=== PATIENT | male | born 1940 | race Caucasian/White ===

== ENCOUNTER 2020-01-18 16:09 | Inpatient (IN) | payer BC, MEDICARE ==
[~2020-01-18] VITALS: Ht 170.2 cm; Wt 59.5 kg
--- NOTE | 2020-01-18 16:40 | NUR ---
PT SITTING RECLINED IN BED WITH BLANKET ON. HOB TO LEVEL OF COMFORT. IV START, LABS DRAWN. AWAITING CTA. DAUGHTER AT BEDSIDE. PT SLIGHTLY LABORED RESPIRATIONS, SATURATING WELL ON 3L NC. SIDE RAIL UP, CALL LIGHT IN REACH.
--- NOTE | 2020-01-18 16:50 | NUR ---
REPORT TO ALEX DELGADO.
[2020-01-18 17:13] LABS: BASOPHILS % (AUTO) 1 % (0-1); EOSINOPHILS % (AUTO) 0 % (1-7); LYMPHOCYTES % (AUTO) 6 % (22-44); MEAN CORPUSCULAR HEMOGLOBIN 29.7 pg (27.5-34.5); MEAN CORPUSCULAR HGB CONC 32.9 g/dL (33.2-36.2); MEAN PLATELET VOLUME 8.6 fL (7.4-10.4); MONOCYTES % (AUTO) 14 % (2-9); NEUTROPHILS % (AUTO) 79 % (42-75); PLATELET COUNT 235 x10^3/uL (130-400); RED BLOOD COUNT 4.74 x10^6/uL (4.38-5.82); RED CELL DISTRIBUTION WIDTH 15.3 % (9.4-14.8)
[2020-01-18 17:14] LABS: MD NO
--- NOTE | 2020-01-18 17:22 | NUR ---
PRIOR LABS HEMOLYZED. NEW PIV PLACED ROM WHICH SECON SET OF LABS OBTAINED-WALKED TO LAB PATIENT/FAMILY UPDATED ON ESTIMATED P OC VSS ON 3L NC (97%)
--- NOTE | 2020-01-18 17:26 | NUR ---
Infection treatment plan reviewed with provider (pna on cxr), provider to obtain cta then proceed with infectiopus labs/abx
[2020-01-18 17:45] LABS: ANION GAP 4 mmol/L (5-15); CHLORIDE 98 mmol/L (98-107); CREATININE 0.77 mg/dL (0.7-1.3)
[2020-01-18 17:53] LABS: TROPONIN I 0.164 ng/mL (0.000-0.045)
--- NOTE | 2020-01-18 17:57 | NUR ---
LAB CALLED TO REPORT CRITICAL TROPONIN OF 0.164 DR. METZGER MADE AWARE. AWAITING ORDERS
--- NOTE | 2020-01-18 18:00 | NUR ---
TO CT SCAN
[2020-01-18] MEDS ORDERED: OMNIPAQUE 350 MG/ML, 75ML BOTTLE ONE (18:29)
[2020-01-18] MEDS ORDERED: HEPARIN 5,000 UNITS/ML, 1ML ONE (18:47)
[2020-01-18] MEDS ORDERED: HEPARIN 25,000 UNITS/250ML PMX 250 ML ONE (18:47)
[2020-01-18] MEDS: HEPARIN 25,000 UNITS/250ML PMX 250 ML IV PRN (18:53)
--- NOTE | 2020-01-18 18:54 | NUR ---
AFTER CLARIFICATION THAT ANTI-XA LA RUNNING-HEAPRIN DRIP AND BOLUS STARTED
[2020-01-18] MEDS ORDERED: HEPARIN 5,000 UNITS/ML, 1ML IV ONE (19:00)
[2020-01-18] MEDS: SODIUM CHLORIDE 0.9% 1,000 ML IV SCH (19:26)
[2020-01-18] MEDS ORDERED: ACETAMINOPHEN 325 MG TABLET PO PRN (19:30)
[2020-01-18] MEDS ORDERED: BISACODYL 10 MG SUPP PR PRN (19:30)
[2020-01-18] MEDS ORDERED: ONDANSETRON ODT 4 MG PO PRN (19:30)
[2020-01-18] MEDS ORDERED: POLYETHYLENE GLYCOL 17 GM PACKET PO PRN (19:30)
--- NOTE | 2020-01-18 19:57 | NUR ---
ULTRASOUND AT BEDSIDE PROVIDED WITH DINNER TRAY NOW ANXIOUS "I CAN'T STAY"-PROVIDER MADE AWARE TO ADMIN ATIVAN AFTER MOVE TO HOSPITAL BED
[2020-01-18] MEDS ORDERED: LORazepam 2 MG/ML, 1ML IVPush PRN (20:00)
[2020-01-18] MEDS ORDERED: LORazepam 2 MG/ML, 1ML ONE (20:34)
--- NOTE | 2020-01-18 20:42 | NUR ---
MEDICATED PER EMAR WITH ATIVAN FOR ANXIETY
--- NOTE | 2020-01-18 20:50 | NUR ---
ATTEMPTED TO CALL REPORT- RN OTHERWISE OCCUPIED
[2020-01-18 21:46] VITALS: BP 158/102
[2020-01-18 21:57] VITALS: BP 169/105
[2020-01-19 00:25] VITALS: BP 169/102
[2020-01-19 00:25] LABS: TROPONIN I 0.191 ng/mL (0.000-0.045)
[2020-01-19] MEDS: HEPARIN 5,000 UNITS/ML, 1ML IV PRN ×3 (02:01→16:59)
[2020-01-19 05:55] LABS: BASOPHILS % (AUTO) 0 % (0-1); EOSINOPHILS % (AUTO) 0 % (1-7); LYMPHOCYTES % (AUTO) 7 % (22-44); MEAN CORPUSCULAR HEMOGLOBIN 29.9 pg (27.5-34.5); MEAN CORPUSCULAR HGB CONC 33.2 g/dL (33.2-36.2); MEAN PLATELET VOLUME 7.7 fL (7.4-10.4); MONOCYTES % (AUTO) 15 % (2-9); NEUTROPHILS % (AUTO) 77 % (42-75); PLATELET COUNT 214 x10^3/uL (130-400); RED BLOOD COUNT 4.43 x10^6/uL (4.38-5.82); RED CELL DISTRIBUTION WIDTH 14.9 % (9.4-14.8)
[2020-01-19 05:56] LABS: CALCIUM 8.8 mg/dL (8.5-10.1); CREATININE 0.61 mg/dL (0.7-1.3)
[2020-01-19 05:59] LABS: TROPONIN I 0.166 ng/mL (0.000-0.045)
[2020-01-19 06:18] LABS: MD NO
[2020-01-19 06:19] LABS: ANION GAP 7 mmol/L (5-15); CHLORIDE 101 mmol/L (98-107)
[2020-01-19 07:35] VITALS: BP 154/88
[2020-01-19 08:58] VITALS: BP 167/98
[2020-01-19] MEDS: SENNA/DOCUSATE TABLET PO SCH (09:00)
[2020-01-19] MEDS: SODIUM CHLORIDE 0.9% 1,000 ML IV SCH ×2 (09:24→23:27)
[2020-01-19] MEDS: LISINOPRIL 10 MG TABLET PO SCH (09:30)
[2020-01-19] MEDS: METOPROLOL TARTRATE 25 MG TAB PO SCH ×2 (09:30→16:59)
[2020-01-19] MEDS ORDERED: ENALAPRILAT 1.25 MG/ML, 1ML IV PRN (09:30)
[2020-01-19] MEDS ORDERED: ENALAPRILAT 1.25 MG/ML, 2ML IV PRN (09:30)
[2020-01-19 12:10] VITALS: BP 159/89
[2020-01-19] MEDS ORDERED: AMLO-150 PO (15:27)
[2020-01-19] MEDS ORDERED: TIOT4MIS3 INH (16:21)
[2020-01-19 16:38] VITALS: BP 153/87
[2020-01-19] MEDS: HEPARIN 25,000 UNITS/250ML PMX 250 ML IV PRN (16:58)
[2020-01-19 21:45] VITALS: BP 144/88
[2020-01-20] VITALS (8 sets, daily range): BP systolic 133–153; BP diastolic 76–88
[2020-01-20] MEDS: HEPARIN 5,000 UNITS/ML, 1ML IV PRN (00:15)
[2020-01-20] MEDS: METOPROLOL TARTRATE 25 MG TAB PO SCH ×2 (00:15→09:31)
[2020-01-20] MEDS ORDERED: SUCCINYLCHOLINE 20 MG/ML, 10ML ONE (08:00)
[2020-01-20] MEDS ORDERED: PROPOFOL 10 MG/ML, 100ML IV ONE ×2 (08:00)
[2020-01-20] MEDS: SENNA/DOCUSATE TABLET PO SCH (09:30)
[2020-01-20] MEDS: LISINOPRIL 10 MG TABLET PO SCH (09:31)
[2020-01-20] MEDS: HEPARIN 25,000 UNITS/250ML PMX 250 ML IV PRN (13:10)
[2020-01-20] MEDS ORDERED: ALTEPLASE 10 MG in SODIUM CHLORIDE 0.9% 240 ML IV ONE (13:30)
[2020-01-20] MEDS ORDERED: MIDAZOLAM HCL 50 MG in SODIUM CHLORIDE 0.9% 40 ML IV PRN (17:30)
[2020-01-20] MEDS: LORazepam 2 MG/ML, 1ML IVPush PRN (17:41)
[2020-01-20] MEDS: FUROSEMIDE 40 MG/4 ML IV SCH (17:42)
[2020-01-20] MEDS ORDERED: FENTANYL PF 1,000 MCG in SODIUM CHLORIDE 0.9% 80 ML IV PRN (18:00)
[2020-01-20] MEDS ORDERED: AZITHROMYCIN 500 MG in SODIUM CHLORIDE 0.9% 250 ML IV SCH (18:00)
[2020-01-20] MEDS ORDERED: GLUCAGON 1 MG IM PRN (18:30)
[2020-01-20] MEDS ORDERED: DEXTROSE 4 GM TAB.CHEW PO PRN (18:30)
[2020-01-20] MEDS ORDERED: PHARMACY MAY ADJ FOR RENAL FX MC SCH (18:30)
[2020-01-20] MEDS ORDERED: NOREPINEPHRINE 8 MG in SODIUM CHLORIDE 0.9% 242 ML IV PRN (18:30)
[2020-01-20] MEDS: ALBUTEROL/IPRATROPIUM 2.5MG/0.5MG, 3 ML HHN SCH (18:30)
[2020-01-20] MEDS ORDERED: DEXTROSE 50%, 50ML SYRINGE IVPush PRN (18:30)
[2020-01-20 18:57] LABS: MICROSCOPIC INDICATED
[2020-01-20] MEDS ORDERED: CEFTRIAXONE PMX 2GM/50ML 50 ML IVPB SCH (20:00)
[2020-01-20] MEDS: SODIUM CHLORIDE FLUSH 10ML SYR IVF SCH (20:07)
[2020-01-20] MEDS ORDERED: METOPROLOL TARTRATE 50 MG TAB PO SCH (21:00)
[2020-01-21] MEDS: ALBUTEROL/IPRATROPIUM 2.5MG/0.5MG, 3 ML HHN SCH ×4 (00:30→20:07)
[2020-01-21 03:38] LABS: ALANINE AMINOTRANSFERASE 19 U/L (12-78); ALBUMIN 2.2 g/dL (3.4-5.0); ANION GAP 3 mmol/L (5-15); CALCIUM 8.2 mg/dL (8.5-10.1); CHLORIDE 102 mmol/L (98-107); CREATININE 0.74 mg/dL (0.7-1.3)
[2020-01-21 03:41] LABS: ALKALINE PHOSPHATASE 75 U/L (45-117); BILIRUBIN,TOTAL 0.5 mg/dL (0.2-1.0); CHOL/HDL RATIO 2.3; CHOLESTEROL, TOTAL 63 mg/dL (140-239); HDL CHOL % 43 % (26-37); HDL CHOLESTEROL (DIRECT) 27 mg/dL (40-60); LDL CHOLESTEROL,CALCULATED 24 mg/dL (54-169); LDL/HDL RATIO 0.9 (0.5-3.0); TRIGLYCERIDES 62 mg/dL (50-200); TROPONIN I 0.108 ng/mL (0.000-0.045); VLDL CHOLESTEROL 12 mg/dL (0-25)
[2020-01-21 03:49] LABS: BASOPHILS % (AUTO) 1 % (0-1); EOSINOPHILS % (AUTO) 1 % (1-7); LYMPHOCYTES % (AUTO) 8 % (22-44); MEAN CORPUSCULAR HGB CONC 33.2 g/dL (33.2-36.2); MEAN PLATELET VOLUME 7.7 fL (7.4-10.4); MONOCYTES % (AUTO) 11 % (2-9); NEUTROPHILS % (AUTO) 80 % (42-75); PLATELET COUNT 180 x10^3/uL (130-400); RED BLOOD COUNT 3.71 x10^6/uL (4.38-5.82); RED CELL DISTRIBUTION WIDTH 14.9 % (9.4-14.8)
[2020-01-21 03:51] LABS: MD NO
[2020-01-21 04:00] VITALS: BP 107/57
[2020-01-21] MEDS: HEPARIN 5,000 UNITS/ML, 1ML IV PRN (04:39)
[2020-01-21] MEDS: FUROSEMIDE 40 MG/4 ML IV SCH ×2 (08:29→17:29)
[2020-01-21] MEDS: SENNA/DOCUSATE TABLET PO SCH (08:29)
[2020-01-21] MEDS: SODIUM CHLORIDE FLUSH 10ML SYR IVF SCH ×2 (08:29→20:13)
[2020-01-21] MEDS: CARVEDILOL 3.125 MG TABLET PO SCH ×2 (09:10→17:30)
[2020-01-21] MEDS: LISINOPRIL 5 MG TABLET PO SCH (09:10)
[2020-01-21] MEDS: HEPARIN 25,000 UNITS/250ML PMX 250 ML IV PRN (10:53)
[2020-01-21] MEDS: LORazepam 2 MG/ML, 1ML IVPush PRN ×2 (11:02→17:29)
[2020-01-22] MEDS: ALBUTEROL/IPRATROPIUM 2.5MG/0.5MG, 3 ML HHN SCH ×4 (02:10→20:45)
[2020-01-22 04:34] LABS: BASOPHILS % (AUTO) 1 % (0-1); EOSINOPHILS % (AUTO) 1 % (1-7); LYMPHOCYTES % (AUTO) 10 % (22-44); MEAN CORPUSCULAR HEMOGLOBIN 29.5 pg (27.5-34.5); MEAN CORPUSCULAR HGB CONC 32.6 g/dL (33.2-36.2); MEAN PLATELET VOLUME 7.7 fL (7.4-10.4); MONOCYTES % (AUTO) 11 % (2-9); NEUTROPHILS % (AUTO) 77 % (42-75); PLATELET COUNT 210 x10^3/uL (130-400); RED CELL DISTRIBUTION WIDTH 14.8 % (9.4-14.8)
[2020-01-22 04:37] VITALS: BP 137/75
[2020-01-22] MEDS: HEPARIN 25,000 UNITS/250ML PMX 250 ML IV PRN (04:37)
[2020-01-22 04:38] LABS: MD NO
[2020-01-22] MEDS: CARVEDILOL 3.125 MG TABLET PO SCH (05:11)
[2020-01-22] MEDS ORDERED: MAGNESIUM SULFATE PMX 2GM/50ML 50 ML IV ONE (06:00)
[2020-01-22] MEDS: FUROSEMIDE 40 MG/4 ML IV SCH ×2 (07:33→17:03)
[2020-01-22] MEDS: QUETIAPINE 25MG TABLET PO SCH ×3 (08:29→21:51)
[2020-01-22] MEDS: LISINOPRIL 5 MG TABLET PO SCH (08:29)
[2020-01-22] MEDS: SODIUM CHLORIDE FLUSH 10ML SYR IVF SCH ×2 (08:30→21:00)
[2020-01-22] MEDS: SENNA/DOCUSATE TABLET PO SCH (08:30)
--- NOTE | 2020-01-22 10:42 | NUR ---
TF Recommendations as Needed: Osmolite 1.2 ON propofol 60 ml/hr goal OFF propofol 65 ml/hr goal
[2020-01-22] MEDS ORDERED: CARVEDILOL 6.25 MG TABLET PO SCH (18:00)
[2020-01-22] MEDS: CEFTRIAXONE PMX 1GM/50ML 50 ML IV SCH (18:17)
[2020-01-22] MEDS: CARVEDILOL 6.25 MG TABLET PO SCH (21:52)
[2020-01-23] MEDS: ALBUTEROL/IPRATROPIUM 2.5MG/0.5MG, 3 ML HHN SCH ×2 (02:25→06:48)
[2020-01-23] MEDS: HEPARIN 25,000 UNITS/250ML PMX 250 ML IV PRN (03:08)
[2020-01-23] MEDS ORDERED: LIDOCAINE-MPF 1%, 2ML ONE (03:49)
[2020-01-23 04:00] VITALS: BP 126/84
[2020-01-23 04:44] LABS: BASOPHILS % (AUTO) 0 % (0-1); EOSINOPHILS % (AUTO) 3 % (1-7); LYMPHOCYTES % (AUTO) 8 % (22-44); MEAN CORPUSCULAR HEMOGLOBIN 29.5 pg (27.5-34.5); MEAN CORPUSCULAR HGB CONC 32.9 g/dL (33.2-36.2); MEAN PLATELET VOLUME 7.8 fL (7.4-10.4); MONOCYTES % (AUTO) 11 % (2-9); NEUTROPHILS % (AUTO) 79 % (42-75); PLATELET COUNT 238 x10^3/uL (130-400); RED BLOOD COUNT 4.02 x10^6/uL (4.38-5.82); RED CELL DISTRIBUTION WIDTH 14.4 % (9.4-14.8)
[2020-01-23 04:48] LABS: MD NO
[2020-01-23 04:56] LABS: CALCIUM 8.7 mg/dL (8.5-10.1); CREATININE 0.75 mg/dL (0.7-1.3); TRIGLYCERIDES 71 mg/dL (50-200)
[2020-01-23 05:06] LABS: ANION GAP 6 mmol/L (5-15); CHLORIDE 95 mmol/L (98-107)
[2020-01-23] MEDS ORDERED: POTASSIUM CHLORIDE 10% 20 MEQ/15 ML UDC PO ONE (06:30)
[2020-01-23] MEDS: HEPARIN 5,000 UNITS/ML, 1ML IV PRN (07:06)
[2020-01-23] MEDS: FUROSEMIDE 40 MG/4 ML IV SCH (07:42)
[2020-01-23] MEDS: SENNA/DOCUSATE TABLET PO SCH (09:03)
[2020-01-23] MEDS: CARVEDILOL 6.25 MG TABLET PO SCH ×3 (09:03→21:08)
[2020-01-23] MEDS: LISINOPRIL 5 MG TABLET PO SCH (09:04)
[2020-01-23] MEDS: SODIUM CHLORIDE FLUSH 10ML SYR IVF SCH ×2 (09:06→21:00)
[2020-01-23] MEDS: APIXABAN 5 MG TABLET PO SCH ×2 (09:06→21:08)
[2020-01-23] MEDS ORDERED: SODIUM CHLORIDE 0.9%, 500ML IVBOLUS ONE ×2 (11:30→18:00)
[2020-01-23 12:32] LABS: CALCIUM 8.7 mg/dL (8.5-10.1); CREATININE 0.66 mg/dL (0.7-1.3)
[2020-01-23 12:45] LABS: ANION GAP 3 mmol/L (5-15); CHLORIDE 98 mmol/L (98-107)
[2020-01-23] MEDS: CEFTRIAXONE PMX 1GM/50ML 50 ML IV SCH (16:54)
[2020-01-23] MEDS: ALBUTEROL-IPRATROPIUM MDI INH INH SCH ×2 (16:54→21:00)
[2020-01-24] MEDS: ALBUTEROL-IPRATROPIUM MDI INH INH SCH ×4 (03:00→20:46)
[2020-01-24 05:00] VITALS: BP 142/79
[2020-01-24 07:53] LABS: BASOPHILS % (AUTO) 0 % (0-1); EOSINOPHILS % (AUTO) 3 % (1-7); LYMPHOCYTES % (AUTO) 6 % (22-44); MEAN CORPUSCULAR HEMOGLOBIN 29.6 pg (27.5-34.5); MEAN CORPUSCULAR HGB CONC 32.6 g/dL (33.2-36.2); MEAN PLATELET VOLUME 8.1 fL (7.4-10.4); MONOCYTES % (AUTO) 10 % (2-9); NEUTROPHILS % (AUTO) 81 % (42-75); PLATELET COUNT 228 x10^3/uL (130-400); RED BLOOD COUNT 3.92 x10^6/uL (4.38-5.82)
[2020-01-24 07:58] LABS: ANION GAP 1 mmol/L (5-15); CALCIUM 8.5 mg/dL (8.5-10.1); CHLORIDE 99 mmol/L (98-107); CREATININE 0.58 mg/dL (0.7-1.3)
[2020-01-24 08:02] LABS: MD NO
[2020-01-24] MEDS ORDERED: METHYLNALTREXONE 12 MG/0.6 ML SYR SQ SCH (09:00)
[2020-01-24] MEDS: SENNA/DOCUSATE TABLET PO SCH (09:30)
[2020-01-24] MEDS: LISINOPRIL 5 MG TABLET PO SCH (09:30)
[2020-01-24] MEDS: APIXABAN 5 MG TABLET PO SCH ×2 (09:31→20:39)
[2020-01-24] MEDS: CARVEDILOL 6.25 MG TABLET PO SCH ×3 (09:31→20:39)
[2020-01-24] MEDS: SODIUM CHLORIDE FLUSH 10ML SYR IVF SCH ×2 (09:31→20:39)
[2020-01-24] MEDS: FUROSEMIDE 40 MG/4 ML IV SCH (09:32)
[2020-01-24] MEDS ORDERED: METHYLNALTREXONE 12 MG/0.6 ML SYR SQ ONE (11:30)
[2020-01-24] MEDS: CEFTRIAXONE PMX 1GM/50ML 50 ML IV SCH (16:47)
[2020-01-24 20:38] VITALS: BP 153/92
[2020-01-25 01:52] VITALS: BP 107/75
[2020-01-25] MEDS: ALBUTEROL-IPRATROPIUM MDI INH INH SCH ×4 (03:27→18:49)
[2020-01-25 05:30] LABS: BASOPHILS % (AUTO) 1 % (0-1); EOSINOPHILS % (AUTO) 3 % (1-7); LYMPHOCYTES % (AUTO) 7 % (22-44); MEAN CORPUSCULAR HEMOGLOBIN 29.2 pg (27.5-34.5); MEAN CORPUSCULAR HGB CONC 32.4 g/dL (33.2-36.2); MEAN PLATELET VOLUME 7.9 fL (7.4-10.4); MONOCYTES % (AUTO) 9 % (2-9); NEUTROPHILS % (AUTO) 80 % (42-75); PLATELET COUNT 236 x10^3/uL (130-400); RED BLOOD COUNT 4.09 x10^6/uL (4.38-5.82); RED CELL DISTRIBUTION WIDTH 14.7 % (9.4-14.8)
[2020-01-25 05:36] LABS: MD NO
[2020-01-25 07:30] VITALS: BP 158/88
[2020-01-25] MEDS: FUROSEMIDE 40 MG/4 ML IV SCH (09:26)
[2020-01-25] MEDS: SENNA/DOCUSATE TABLET PO SCH (09:26)
[2020-01-25] MEDS: CARVEDILOL 6.25 MG TABLET PO SCH ×3 (09:26→21:22)
[2020-01-25] MEDS: APIXABAN 5 MG TABLET PO SCH ×2 (09:27→21:22)
[2020-01-25] MEDS: LISINOPRIL 5 MG TABLET PO SCH (09:27)
[2020-01-25] MEDS: SODIUM CHLORIDE FLUSH 10ML SYR IVF SCH ×2 (09:31→21:33)
[2020-01-25 12:00] VITALS: BP 145/83
[2020-01-25 20:04] VITALS: BP 103/72
[2020-01-25] MEDS ORDERED: GUAIFENESIN ER 600 MG TABLET PO SCH (21:00)
[2020-01-25] MEDS ORDERED: DOXYCYCLINE 100MG TABLET PO SCH (21:00)
[2020-01-26 00:58] VITALS: BP 131/80
[2020-01-26] MEDS ORDERED: EPINEPHRINE SYRINGE 0.1 MG/ML, 10ML ONE ×2 (05:00→05:05)
[2020-01-26] MEDS ORDERED: SODIUM BICARB 8.4%, 50ML SYRINGE ONE (05:05)
[2020-01-26] MEDS ORDERED: CODE BLUE RESPONSE XX ONE (05:05)
[2020-01-26] MEDS ORDERED: predniSONE 50MG TABLET PO SCH (08:00)
[2020-01-26] MEDS ORDERED: METHYLNALTREXONE 12 MG/0.6 ML SYR SQ SCH (11:30)
[2020-01-30] MEDS ORDERED: APIXABAN 5 MG TABLET PO SCH (09:00)
== END 2020-01-26 05:00 | disposition expired | DRG 208 ==
LOC: ED 17:06 → EDIP 18:36 → 5SO 21:34 → CCU 01-20 16:41 → 5SO 01-24 18:17
PROVIDERS: ADMIT Internal Medicine; ATTEND Internal Medicine
PROC: 5A1945Z Respiratory Ventilation, 24-96 Consecutive Hours (ICD-10-PCS; principal; 2020-01-20)
PROC: 0BH17EZ Insertion of Endotracheal Airway into Trachea, Via Natural or Artificial Opening (ICD-10-PCS; 2020-01-20)
PROC: 0T9B70Z Drainage of Bladder with Drainage Device, Via Natural or Artificial Opening (ICD-10-PCS; 2020-01-20)
PROC: 02HV33Z Insertion of Infusion Device into Superior Vena Cava, Percutaneous Approach (ICD-10-PCS; 2020-01-21)
PROC: B5181ZA Fluoroscopy of Superior Vena Cava using Low Osmolar Contrast, Guidance (ICD-10-PCS; 2020-01-21)
PROC: B548ZZA Ultrasonography of Superior Vena Cava, Guidance (ICD-10-PCS; 2020-01-21)
PROC: 5A12012 Performance of Cardiac Output, Single, Manual (ICD-10-PCS; 2020-01-26)
DX: I26.99 Other pulmonary embolism without acute cor pulmonale (principal); J96.01 Acute respiratory failure with hypoxia; I21.A1 Myocardial infarction type 2; J96.02 Acute respiratory failure with hypercapnia; G93.41 Metabolic encephalopathy; I50.23 Acute on chronic systolic (congestive) heart failure; J18.9 Pneumonia, unspecified organism; J91.8 Pleural effusion in other conditions classified elsewhere; E87.1 Hypo-osmolality and hyponatremia; I47.1 Supraventricular tachycardia; I42.9 Cardiomyopathy, unspecified; I11.0 Hypertensive heart disease with heart failure; I95.9 Hypotension, unspecified; J43.9 Emphysema, unspecified; E87.6 Hypokalemia; I48.0 Paroxysmal atrial fibrillation; E78.5 Hyperlipidemia, unspecified; B95.4 Other streptococcus as the cause of diseases classified elsewhere; I71.2 Thoracic aortic aneurysm, without rupture; Z96.641 Presence of right artificial hip joint; F17.210 Nicotine dependence, cigarettes, uncomplicated; Z82.49 Family history of ischemic heart disease and other diseases of the circulatory system; Z81.1 Family history of alcohol abuse and dependence; Z79.899 Other long term (current) drug therapy
CPT/HCPCS: 36415; 36573; 36600; 71045; 71275; 74230; 80048; 80053; 80061; 81001; 82040; 82803; 82962; 83735; 83880; 84100; 84478; 84484; 85025; 85520; 87040; 87070; 87081; 87086; 87205; 92950; 93005; 93306; 93970; 94002; 94003; 94640; 96372; 99291; G0378; J0456; J0696; J1644; J1940; J2704; J3010; Q9967; C1751; J0330; J2060; J3475; J7030; J7040; J7050